=== PATIENT | male | born 1970 | race Caucasian/White ===

== ENCOUNTER 2020-10-14 20:37 | Emergency (ER) | payer OTHER, SELFPAY ==
[2020-10-14 20:37] VITALS: BP 128/80; PULSE 94; RESP 16; TEMP 36; O2SAT 97; BMI 31.1
--- NOTE | 2020-10-14 22:13 | EDS_ITS ---
HPI History of Present Illness Chief Complaint: Dental Informant: patient Onset/Context/Timing Onset: Days Context: Gradual Onset Timing: Continuous Current Severity: Mild Maximum Severity: Moderate Associated Symptoms Assocated Symptom - Dental: face swelling, cold sensitivity and hot sensitivity; Negative for fever Narrative Narrative: 50-year-old male states his left upper molar is having a lot of pain. He said the tooth behind it loss of feeling months ago. But now there is pain in a tooth in front of it. He developed facial swelling today pain yesterday. No documented fever. No other complaints. Prior similar symptoms: Yes Recent Illness/Hospitalization: No PFSH PFSH Home Medications penicillin V potassium 500 mg PO 4X/DAY #40 tab 10/14/20 [Rx Last Taken Unknown] Allergy/AdvReac Type Severity Reaction Status Date / Time No Known Allergies Allergy Verified 10/14/20 20:39 Social History Smoking Status: Unknown if ever smoked ROS ROS ED ROS Narrative Denies recent illness. Review of Systems ROS Unobtainable: Denies due to encephalopathy Constitutional Constitutional ED: Denies chills or fever(s) Eyes Eyes: Denies change in vision ENT ENT ED: Denies ear pain, rhinorrhea or sore throat Cardiovascular Cardiovascular: Denies chest pain Respiratory/Chest Respiratory/Chest: Denies cough or dyspnea Gastrointestinal Gastrointestinal: Denies abdominal pain, diarrhea, nausea or vomiting Genitourinary Genitourinary ED: Denies dysuria Musculoskeletal Musculoskeletal: Denies myalgias Integumentary Denies rash Neurologic Neurologic: Denies headache(s) Psychiatric Psychiatric: Denies depression Endocrine Endocrinology: Denies polyuria Hematologic/Lymphatic Hematologic/Lymphatic: Denies easy bruising Allergic/Immunologic Allergic/Immunologic ED: Denies urticaria EXAM Physical Exam Narrative Exam Narrative: Middle-age male no acute distress vital signs stable afebrile mild swelling left cheek. No trouble swallowing or breathing. Left upper last molar has a very large cavity and loss of the filling. The tooth is just proximal to it or anterior to it is a 1 is complaining of pain. There is no gingival swelling. No abscess. No trismus. Can open and close his mouth any difficulty. There is no swelling inside his mouth. Neck nontender no lymphadenopathy. Lungs are clear. Heart regular rate and rhythm. Otherwise exam unremarkable. Const Vital Signs: 10/14/20 20:37 Temperature 96.8 F L Temperature Source Temporal Pulse Rate 94 Respiratory Rate 16 Blood Pressure 128/80 H Blood Pressure Mean 96 Pulse Ox 97 Oxygen Delivery Method Room Air Positive well nourished and well developed; Negative for obese, cachectic, contractures or unkempt General Appearance ED: well developed; Negative for unkempt, cachectic, contractures or NAD Nutritional Appearance: Negative for cachectic or obese HEENT HEENT Narrative: Left upper last molar large cavity and loss of feeling. No gingival swelling. No asthma process. No trismus. Mild left facial swelling. trauma; Negative for tenderness Mouth ED: No mouth trauma Mouth: No mouth trauma Teeth and Gingiva: caries Eyes PERRL and EOMs intact bilaterally General Eye ED: Negative for pale conjunctiva or scleral icterus Neck no lymphadenopathy, supple and no JVD General: normal visual inspection; Negative for anterior neck swelling, tenderness or submandibular swelling Lymph Lymphatic: no lymphadenopathy noted; Negative for lymphadenopathy Chest Wall inspection of chest normal and palpation of chest normal Resp normal respiratory effort, no retractions and clear to auscultation bilaterally Effort and Inspection: Negative for other Cardio regular rate, regular rhythm, S1 normal heart sound, S2 normal heart sound and no murmurs GI normal to inspection, nondistended, normoactive bowel sounds, non-tender, non- distended and no masses Palpation: soft Back/Spine no CVA tenderness Extremity normal to inspection Neuro oriented x3 and moves all extremities Sensorium / Orientation: alert, oriented to person, oriented to place and oriented to time; Negative for orientation impaired Psych mental status grossly normal Appearance: Negative for unkempt Attitude: No agitated Mood & Affect: Negative for depressed or tearful Skin no rashes or lesions noted and no wounds MDM MDM MDM Narrative Medical decision making narrative: 50-year-old male dental pain left facial swelling suspect underlying infection will be started on Pen-Vee K and a prescription sent to his pharmacy and [place]. He is in a follow-up with a local dentist. Discharge Plan Triage Chief Complaint: Dental ED Provider: Rashaun Thornton Dx/Rx/DC Orders Clinical Impression: Dental infection Instructions: ED Dental Abscess Prescriptions: New penicillin V potassium 500 mg tablet 500 mg PO 4X/DAY Qty: 40 RF: 0 Primary Care Provider: NOT,DEFINED Referrals: NOT,DEFINED [Primary Care Provider] - Activity Restrictions/Additional Instructions: Ice to your face. Motrin for pain and swelling and Tylenol for pain. Pen-Vee K 1 pill 4 times a day till gone. Call and follow-up with a dentist soon as possible. Disposition Disposition: Home, Self Care
[2020-10-14] MEDS: Penicillin Vk 250 MG Tablet 500 MG PO (22:24)
== END 2020-10-14 22:47 | disposition home or self-care (01) ==
LOC: ED 22:39
PROVIDERS: Emergency Provider Emergency Medicine
DX: K04.7 Periapical abscess without sinus (principal)
CPT/HCPCS: 99283